=== PATIENT | female | born 1970 | race Caucasian/White ===

== ENCOUNTER → 2016-07-22 | Outpatient (CLI) | payer OTHER ==
[~2016-07-22] MED LIST: AMITRYPTYLINE PO; COMBIVENT INH14.7 GM INH; HCTZ PO; IBUPROFEN200 M1; LOPRESSOR PO; LORATADINE PO; LORTAB 5 PO; PROVENTIL17 GM IH; QVAR7.3 GM INH; REMERON PO; SYMBICORT INH; VOLTAREN75 MG PO; ZESTORETIC 20/21 TAB PO; ZESTRIL10 MG PO
--- NOTE | ~2016-07-22 | US98 ---
[facility] A Service of [facility] & [facility] RADIOLOGY TEXT RESULTS PATIENT: DEEPAK BANUELOS LOCATION: [facility] : 70 UNIT #: [id number] AGE: [address]: RADHA FLORES APRN SEX: F ORDER DR: [id number] [facility] [address] [place], [place] [address] [id number] O MR#: [id number] Acc #: [id number] NAME: DEEPAK BANUELOS. : 1970 SEX: F STUDY DATE/TIME: 07/22/2016 10:13 UNIT: [facility] ROOM: STUDY DESCRIPTION: US Pelvic Non-OB Complete Attending Physician: Radha Flores Aprn Ordering Physician: Radha Flores Aprn Primary Care Physician: Radha Flores Aprn MEDICAL IMAGING REPORT This report is preliminary unless electronic signature is present EXAM Transabdominal and transvaginal pelvic ultrasound, 07/22/2016 HISTORY Irregular menstrual bleeding since August 2015. FINDINGS Transabdominal and transvaginal pelvic ultrasound was performed. Endovaginal ultrasound was performed for attempted better visualization of the adnexal structures. The bladder is normal in appearance. Uterus measured 8.5 cm craniocaudal x 4.3 cm AP x 5.2 cm transverse. The endometrial stripe is thickened measuring 1.7 cm. Clinical correlation is recommended. The right ovary was not identified on either transabdominal or transvaginal portions of the examination. The left ovary measures 3.9 cm x 2.6 cm x 3.4 cm and contains a 2.8 cm cyst with a septation. Consider followup pelvic ultrasound in 6-8 weeks for further evaluation of this complicated cystic finding. There is no free fluid in the pelvis. IMPRESSION 1. Thickened endometrial stripe measuring 1.7 cm. Clinical correlation recommended. 2. 2.8-cm complicated septated cystic lesion on the left ovary. Recommend followup pelvic ultrasound in 6-8 weeks for further evaluation of this finding. 3. The right ovary was not identified on either transabdominal or transvaginal portions of the examination. Dictated by... Iain Martinez M.D. THIS IS AN ELECTRONICALLY VERIFIED REPORT Iain Martinez M.D. at 07/23/2016 8:00 AM SARBJIT/arnold [facility] A Service of [facility] & [facility] RADIOLOGY TEXT RESULTS PATIENT: DEEPAK BANUELOS LOCATION: [facility] #: [id number] : 70 UNIT #: [id number] AGE: [address]: RADHA FLORES APRN SEX: F ORDER DR: TD: 07/22/2016 14:14 JOB #: [id number] MEDICAL IMAGING REPORT COPY
== END | disposition home or self-care (01) ==
LOC: CWCC 10:00
DX: N92.6 Irregular menstruation, unspecified (principal); R93.8 Abnormal findings on diagnostic imaging of other specified body structures; N83.292 Other ovarian cyst, left side
CPT/HCPCS: 76830; 76856